=== PATIENT | female | born 2000 | race Caucasian/White ===

== ENCOUNTER 2020-05-09 18:28 | Emergency (ER) | payer OTHER ==
[~2020-05-09] VITALS: Ht 170.2 cm; Wt 55.8 kg
[2020-05-09 18:43] VITALS: Ht 170.2 cm; Wt 55.8 kg
[2020-05-09 22:12] VITALS: BP 130/76
== END 2020-05-09 22:14 | disposition home or self-care (01) ==
LOC: ED 18:28
DX: R10.9 Unspecified abdominal pain (principal)